=== PATIENT | male | born 2000 | race Hispanic/Latino ===

== ENCOUNTER 2023-01-26 10:46 | Emergency (ER) | payer OTHER ==
--- OUTSIDE RECORDS SUMMARY | 2023-01-26 10:55 | XMS REPORT | Continuity of Care Document ---
:2000 Author Organization [facility] t Address [address] [place] [address] [place] [id number] Care Team Providers Name Role Phone Nan Snyder Primary Care Physician Blaze Diaz Attending Clinician Unavailable Sukhdeep Cueva Attending Clinician Unavailable Nan Snyder Attending Clinician NAN LEONG Attending Clinician Unavailable Physician, Martha Primary or Family Admitting Clinician [facility] CENTER, URGENT CARE Admitting Clinician Unavailable Payers Payer Name Policy Type Policy Number Effective Date Expiration Date S [facility] [id number] 2016 00:00:00 Problems Condition Condition Condition Status Onset Resolution Last Treating Co mments Source Name Details Category Date Date Treatment Clinician Date No known No known Disease Unive rs active active ity of problems problems [facility] Allergies, Adverse Reactions, Alerts Allergy Allergy Status Severity Reaction(s) Onset Inactive Treating Comm ents Source Name Type Date Date Clinician Sulfa DA Active U UNKNOWN [facility] (Sulfona 8-04 Clear mide 00:00: [place] [facility] 00 Regiona ics) [facility] Sulfa Propensi Active Unknown - 2018-03 Patient Univ ers (Sulfona ty to See comments 2-19 unsure it y of mide adverse 00:00: [place] Antibiot reaction 00 Medica l ics) [facility] No Known DA Active U 2001- [facility] Contrast 5-15 Clear Allergie 00:00: [place] [facility] No Known DA Active U X 2001- [facility] Drug 5-15 Clear Allergie 00:00: [place] [facility] No Known DA Active U 2001- [facility] Food 5-15 Clear Allergie 00:00: [place] [facility] No Known DA Active U 2001- [facility] Other 5-15 Clear Allergie 00:00: [place] [facility] Social History Social Habit Start Date Stop Date Quantity Comments Source Exposure to 2021-10-20 2021-10-30 Not sure [facility] SARS-CoV-2 00:00:00 09:02:00 [facility] (event) [place] Alcohol intake 2021-10-30 2021-10-30 Current drinker Unive rsity of 00:00:00 00:00:00 of alcohol [facility] (finding) [place] Tobacco use and 2019-03-16 2019-03-16 Smokeless tobacco Un iversity of exposure 00:00:00 00:00:00 non-user [facility] Sex Assigned At [birth year] [facility] 00:00:00 00:00:00 [facility] Smoking Status Start Date Stop Date Source Never smoked tobacco [facility] [place] [place] Medications Ordered Filled Start Stop Current Ordering Indication Dosage Frequency Signature Comments Components Source Medication Medication Date Date Medication? Clinician (SIG) Name Name methylPREDN 2018- Yes Take by [facility] ISolone 4 2-20 mouth ity of mg tablets 00:00: SEE-INSTRU T exas 00 CTIONS. Medical follow Branch package directions Vital Signs Vital Name Observation Time Observation Value Comments Source Diastolic blood 2021-10-30 14:03:00 55 mm[Hg] Unive rsity of pressure [facility] Heart rate 2021-10-30 14:03:00 76 /min [facility] Body temperature 2021-10-30 14:03:00 36.72 Nancy [facility] Res[facility] rate 2021-10-30 14:03:00 16 /min [facility] Body height 2021-10-30 14:03:00 190.5 cm [facility] Body weight 2021-10-30 14:03:00 87.317 kg [facility] BMI 2021-10-30 14:03:00 24.06 kg/m2 [facility] Oxygen saturation in 2021-10-30 14:03:00 100 /min [facility] Pulse oximetry Branch Systolic blood 2021-10-30 14:03:00 127 mm[Hg] Univer venturay of pressure [facility] Procedures This patient has no known procedures. Encounters Start End Encounter Admission Attending Care Care Encounter Source Date/Time Date/Time Type Type Clinicians Facility Department ID 2021-10-30 2021-10-31 Emergency EM Emily, [facility]L MARC [id number] [facility] 23:19:00 01:27:00 Blaze 49 [facility] 2021-10-30 2021-10-30 Emergency EM Emily, HCACL [facility]L [id number] [facility] 23:19:00 23:19:00 Blaze [id number] [facility] 2021-10-30 2021-10-30 Emergency EM Anay, HCACL AERS [id number] [facility] 09:31:00 11:04:00 Sukhdeep 52 [facility] 2021-10-30 2021-10-30 Office JAROD Leong [id number] [facility] 09:00:00 09:30:00 Visit Nan PEDIATRIC [id number] it[id number] [id number] [facility] PRIMARY [facility] CARE [facility]INIC 2021-10-30 2021-10-30 Outpatient R SYLVIA WVCATHY [facility] [id number] [facility] 09:00:00 09:00:00 NAN sutton [facility] Results Test Description Test Time Test Comments Results Result Comments Source CBC W/AUTO DIFF 2021-10-30 11:56:00 Test Item Value Reference Range Interpretation Comme nts WHITE BLOOD CELL (test code = WBC) 4.0 K/uL 3.5-11.0 N RED BLOOD CELL (test code = RBC) 4.93 M/uL 4.00-5.60 N HEMOGLOBIN (test code = HGB) 15.9 GM/DL 12.5-16.9 N HEMATOCRIT (test code = HCT) 44.4 % 40.0-54.0 N MEAN CELL VOLUME (test code = MCV) 90.1 fL 81.0-99.0 N MEAN CELL HGB (test code = MCH) 32.3 pg 27.0-31.0 H MEAN CELL HGB CONCETRATION (test code = MCHC) 35.8 GM/DL 33.0-37. 0 N RED CELL DISTRIBUTION WIDTH CV (test code = RDW) 13.3 % 11.5- 14.5 N PLATELET COUNT (test code = PLT) 206 K/mm3 150-400 N MEAN PLATELET VOLUME (test code = MPV) 10.4 FL 8.8-13.1 N NEUTROPHIL % (test code = NT%) 60.3 % 40.0-76.0 N LYMPHOCYTE % (test code = LY%) 33.7 % 15.0-40.0 N MIXED % (test code = MX%) 6.0 % 3.0-15.0 N NEUTROPHIL # (test code = NT#) 2.5 K/uL 1.8-7.6 N LYMPHOCYTE # (test code = LY#) 1.3 K/uL 1.0-3.8 N MIXED # (test code = MX#) 0.2 k/mm3 0.1-0.8 N BASIC METABOLIC [id number] 09:58:00 Test Item Value Reference Range Interpretation Comments SODIUM (test code = NA/ABG) 143 MEQ/L 134-147 N POTASSIUM (test code = K/ABG) 4.0 MEQ/L 3.4-5.0 N CHLORIDE (test code = CL/ABG) 106 MEQ/L 100-108 N CREATININE ABG (test code = 1.0 mg/dL 0.8-1.3 N CREAABG) POC IONIZED CALCIUM (test code = 1.19 MMOL/L 1.12-1.32 N POCCA) POC GLUCOSE (test code = POCGLU) 72 MG/DL 70-110 N - XR CHEST 2 [id number] 00:00:00 [facility] 2000 Sex: M FAX:Sukhdeep Cueva MD [place]: [place] St: REG Name: ANDERS SARMIENTO FSED : 2000 Age/S: 21/M [address] [facility] Unit #: [id number] [place]: [place] [address] Phys: Sukhdeep Cueva MD Acct: [id number] Dis Date: Status:REG ER PHONE #: Exam Date: 10/30/2021 1011 FAX #: Reason: SOB EXAMS: CPT CODE: [id number] XR CHEST 2V [id number] PROCEDURE INFORMATION: Exam: XR Chest Exam date and time: 10/30/2021 9:40 AM Age: 21 years oldClinical indication: Shortness of breath; Additional info: SOB TECHNIQUE: Imaging protocol: Radiologic exam of the chest. Views: 2 views. COMPARISON: No relevant prior studies available. FINDINGS: Lungs: No focal consolidations. Pleural spaces: Unremarkable. No pleural effusion. No pneumothorax. Heart/Mediastinum: Unremarkable. Bones/joints: Unremarkable. IMPRESSION: No acute cardiopulmonary abnormalities at 1026 Reported and signed by: Titi Kebede M.D. CC: Sukhdeep Cueva MD Technologist: Mason Encarnacion RT(R)(CT) Trnscrd Date/Time/By: 10/30/2021 (1026) : By: [email or web address] Orig Print D/T: S: 10/30/2021 (1997) PAGE 1 Signed Report
[2023-01-26] MEDS ORDERED: ONDANSETRON 4 MG/2 ML VIAL ONE (11:22)
[2023-01-26] MEDS ORDERED: MAGNES/ALUMIN/SIMET 30ML UCUP ONE (11:22)
[2023-01-26] MEDS ORDERED: FAMOTIDINE 20 MG/2 ML VIAL IV ONE (11:22)
[2023-01-26] MEDS ORDERED: NA CHLORIDE 0.9% 1,000 ML ONE (11:22)
[2023-01-26 11:23] LABS: Absolute Lymphocytes (CBC) 1.7 K/uL (0.7-4.9); Hematocrit 49.4 % (39.6-49.0); Lymphocytes % 23.1 % (15.3-44.8); MCV 90.5 fL (80-100); MPV 8.2 fL (7.6-11.3); Platelets 180 thou/uL (152-406); RBC Red Blood Cell Count 5.46 M/uL (4.33-5.43)
[2023-01-26 11:29] LABS: Albumin 4.3 g/dL (3.4-5.0); Bilirubin Total 0.6 mg/dL (0.2-1.0); Potassium 4.1 mEq/L (3.5-5.1); Protein, Total 8.5 g/dL (6.4-8.2)
--- NOTE | 2023-01-26 11:41 | RAD REPORT ---
EXAM DESCRIPTION: CTAbdomen Pelvis W Contrast - 01/26/2023 11:28 am CLINICAL HISTORY: ABD PAIN COMPARISON: No comparisons TECHNIQUE: CT of the abdomen and pelvis was performed. All CT scans are performed using dose optimization technique as appropriate and may include automated exposure control or mA/KV adjustment according to patient size. FINDINGS: Lower chest: No acute abnormality. Liver: No acute abnormality or suspicious lesions. Biliary: No biliary ductal dilatation. Stomach: No significant focal abnormality. Duodenum: No significant focal abnormality. Pancreas: No significant abnormality. Spleen: No significant abnormality. Adrenal: No suspicious lesions. Kidney/ureter: No hydronephrosis. No renal calculi. Retroperitoneum: No retroperitoneal adenopathy. Vascular: No aneurysm. Bowel: Nonspecific fluid within the small bowel and colon. Normal appendix. Peritoneum: No ascites or free air. Bladder: Grossly unremarkable. Reproductive: No adnexal masses. Bones: No acute fracture. Other: n/a IMPRESSION: Fluid-filled small bowel and colon could represent a gastroenteritis. No bowel obstructi on. Normal appendix. .
--- NOTE | 2023-01-26 12:04 | ER ---
Nurse's Notes [facility] Name: William Sarmiento Age: 22 yrs Sex: Male : 2000 Arrival Date: 01/26/2023 Time: 10:46 Bed 13 Private MD: Diagnosis: Infectious gastroenteritis and colitis, unspecified;Gastritis, unspecified Presentation: 01/26 10:58 Chief complaint: Upper abdominal pain and nausea x 1 week. Pain is worse after eating. hb Denies fever/V/D. Coronavirus screen: At this time, the client does not indicate any symptoms associated with coronavirus-19. Ebola Screen: No symptoms or risks identified at this time. Initial Sepsis Screen: Does the patient meet any 2 criteria? No. Patient's initial sepsis screen is negative. Does the patient have a suspected source of infection? No. Patient's initial sepsis screen is negative. Risk Assessment: Do you want to hurt yourself or someone else? Patient reports no desire to harm self or others. Onset of symptoms was January 19, 2023. 10:58 Method Of Arrival: Ambulatory 10:58 Acuity: HARDIK 3 hb Historical: - Allergies: 11:00 No Known Allergies; hb - Home Meds: 11:00 None [Active]; hb - PMHx: 11:00 None; hb - PSHx: 11:00 None; hb - Immunization history:: Adult Immunizations unknown. - Family history:: not pertinent. - Social history:: Smoking status: unknown. - Hospitalizations: : No recent hospitalization is reported. Screenin:49 [facility] ED Fall Risk Assessment (Adult) Score/Fall Risk Level 0 - 2 = Low Risk nj1 Oriented to surroundings, Maintained a safe environment, Hourly rounding (assess needs \T\ fall precautionary measures) done. Abuse screen: Denies threats or abuse. Denies injuries from another. Nutritional screening: No deficits noted. Tuberculosis screening: No symptoms or risk factors identified. Assessment: 11:48 General: Appears in no apparent distress. comfortable, Behavior is calm, cooperative, nj1 appropriate for age. Pain: Complains of pain in epigastric area Pain currently is 2 out of 10 on a pain scale. Neuro: Level of Consciousness is awake, alert, obeys commands, Oriented to person, place, time, situation. Cardiovascular: Patient's skin is warm and dry. Respiratory: Airway is patent Respiratory effort is even, unlabored. GI: Reports upper abdominal pain, diarrhea, epigastric pain, nausea, Patient currently denies vomiting. 12:20 Reassessment: Patient appears in no apparent distress at this time. Patient and/or nj1 family updated on plan of care and expected duration. Pain level reassessed. Patient is alert, oriented x 3, equal unlabored respirations, skin warm/dry/pink. Patient states feeling better. Vital Signs: 10:58 BP 129 / 91; Pulse 55; Resp 16; Temp 97.6(O); Pulse Ox 100% on R/A; Weight 83.91 kg; hb Height 6 ft. 3 in. ; Pain 2/10; 11:50 BP 117 / 86; Pulse 54; Resp 19; Pulse Ox 100% ; Pain 2/10; nj1 10:58 Body Mass Index 23.12 (83.91 kg, 190.5 cm) hb 10:58 Pain Scale: Adult hb 11:50 Pain Scale: Adult nv1 ED Course: 10:50 Patient arrived in ED. mg5 10:51 Filipe Vaughn MD is Attending Physician. rn 11:00 Triage completed. hb 11:00 Inserted saline lock: 20 gauge in right antecubital area, using aseptic technique. mb9 11:12 EKG done, by ED staff, reviewed by Filipe Vaughn MD. em1 11:14 Arm band placed on. mb9 11:15 CBC with Diff Sent. mb9 11:15 CMP Sent. mb9 11:20 Ayesha Marques, RN is Primary Nurse. nj1 11:30 CT Abd/Pelvis - IV Contrast Only In Process Unspecified. EDMS 11:49 Provided Education on: call light, fall precautions. nj1 11:50 Patient has correct armband on for positive identification. Bed in low position. Call nv1 light in reach. Adult w/ patient. 12:20 No provider procedures requiring assistance completed. IV discontinued, intact, nj1 bleeding controlled. Administered Medications: 11:10 Drug: NS 0.9% IV 1000 ml IV at 1 bolus Per protocol; 1000 mL bolus Route: IV; Rate: 1 mb9 bolus; Site: right antecubital; 12:20 Follow up: Response: No adverse reaction; IV Status: Completed infusion; IV Intake: nj1 1000ml 11:12 Drug: Famotidine IVP 20 mg IVP once; dilute with 10 mL 0.9% NaCl; give over 2 minutes mb9 Route: IVP; Site: right antecubital; 12:20 Follow up: Response: No adverse reaction nj1 11:14 Drug: GI Cocktail without - (Maalox PO 30 ml, Lidocaine Mucous Membrane 2 % 15 mb9 ml) PO once Route: PO; 12:20 Follow up: Response: No adverse reaction nj1 11:15 Drug: Ondansetron IVP 4 mg IVP once; over 2 minutes Route: IVP; Site: right antecubital;mb9 12:20 Follow up: Response: No adverse reaction nj1 Medication: 12:46 VIS not applicable for this client. nj1 Intake: 12:20 IV: 1000ml; Total: 1000ml. nj1 Outcome: 12:04 Discharge ordered by . rn 12:30 Patient left the ED. nj1 12:46 Discharged to home ambulatory, with significant other, nj1 12:46 Condition: stable 12:46 Discharge instructions given to patient, Instructed on discharge instructions, follow up and referral plans. medication usage, Demonstrated understanding of instructions, follow-up care, medications, Prescriptions given X 4, Signatures: Dispatcher [employer] EDMS Filipe Vaughn MD MD rn Martinez, Eric em1 Mela Stephens RN RN hb Breneman, Mary Beth, RN RN mb9 Ayesha Marques RN RN nj1 Gardner, [place] mg5 Corrections: (The following items were deleted from the chart) 12:47 12:46 Patient left the ED. nj1 nj
--- NOTE | 2023-01-26 12:04 | EDPHYS ---
Physician Documentation [facility] Name: William Sarmiento Age: 22 yrs Sex: Male : 2000 Arrival Date: 01/26/2023 Time: 10:46 Bed 13 Private MD: ED Physician Filipe Vaughn HPI: 01/26 10:58 This 22 yrs old Male presents to ER via Unassigned with complaints of rn Abdominal Pain. 10:58 The patient presents with abdominal pain in the epigastric area. Onset: The rn symptoms/episode began/occurred 1 week(s) ago. The symptoms radiate to back. Associated signs and symptoms: Pertinent positives: nausea, Pertinent negatives: blood in stools, chest pain, diarrhea, fever, shortness of breath, testicular pain, vomiting blood. The symptoms are described as achy, crampy. Modifying factors: The symptoms are alleviated by nothing, the symptoms are aggravated by food. Severity of pain: At its worst the pain was moderate in the emergency department the pain is unchanged. The patient has not experienced similar symptoms in the past. The patient has not recently seen a physician. Patient reports upper abdominal pain over the last week, got worse last night with nausea and epigastric pain that would not improve. Reports started getting really bad last night after eating pizza. Did not sleep all night. Radiates to the back. No history of gallbladder stones or pancreatitis. No dark stool or bloody stool.. Historical: - Allergies: 11:00 No Known Allergies; hb - Home Meds: 11:00 None [Active]; hb - PMHx: 11:00 None; hb - PSHx: 11:00 None; hb - Immunization history:: Adult Immunizations unknown. - Family history:: not pertinent. - Social history:: Smoking status: unknown. - Hospitalizations: : No recent hospitalization is reported. ROS: 10:58 Constitutional: Negative for fever, chills, and weight loss, Cardiovascular: Negative rn for chest pain, palpitations, and edema, Respiratory: Negative for shortness of breath, cough, wheezing, and pleuritic chest pain, Abdomen/GI: Positive for abdominal pain and nausea Back: Positive for mid back pain MS/Extremity: Negative for injury and deformity, Skin: Negative for injury, rash, and discoloration, Neuro: Negative for headache, weakness, numbness, tingling, and seizure, Exam: 10:58 Constitutional: This is a well developed, well nourished patient who is awake, alert, rn and in no acute distress. Ambulatory to room without assistance or distress Head/Face: Normocephalic, atraumatic. Cardiovascular: Bradycardic, regular. No pulse deficits. Respiratory: No increased work of breathing, no retractions or nasal flaring. Abdomen/GI: Soft, epigastric tenderness, negative Fuentes, no peritoneal signs Skin: Warm, dry MS/ Extremity: Pulses equal, no cyanosis. Neuro: Awake and alert, GCS 15 Vital Signs: 10:58 BP 129 / 91; Pulse 55; Resp 16; Temp 97.6(O); Pulse Ox 100% on R/A; Weight 83.91 kg; hb Height 6 ft. 3 in. ; Pain 2/10; 11:50 BP 117 / 86; Pulse 54; Resp 19; Pulse Ox 100% ; Pain 2/10; nj1 10:58 Body Mass Index 23.12 (83.91 kg, 190.5 cm) hb 10:58 Pain Scale: Adult hb 11:50 Pain Scale: Adult nj1 MDM: 10:51 Patient medically screened. rn 12:01 Differential diagnosis: appendicitis, bowel obstruction, cholecystitis, Cholelithiasis, rn diverticulitis, gastritis, gastroesophageal reflux disease, Peptic Ulcer Disease. Data reviewed: vital signs, nurses notes, lab test result(s), radiologic studies, CT scan, and as a result, I will discharge patient. I considered the following discharge prescriptions or medication management in the emergency department Medications were administered in the Emergency Department. See MAR. Counseling: I had a detailed discussion with the patient and/or guardian regarding the historical points, exam findings, and any diagnostic results supporting the discharge/admit diagnosis, lab results, radiology results, the need for outpatient follow up, to return to the emergency department if symptoms worsen or persist or if there are any questions or concerns that arise at home. Response to treatment: the patient's symptoms have markedly improved after treatment, and as a result, I will discharge patient. Special discussion: Based on the patient's Hx, exam, and Dx evaluation, there is no indication for emergent surgery or inpatient Tx. It is understood by the patient/guardian that if the Sx's persist or worsen they need to return immediately for re-evaluation. I discussed with the patient/guardian in detail that at this point there is no indication for admission to the hospital. It is understood, however, that if the symptoms persist or worsen the patient needs to return immediately for re-evaluation. ED course: Patient improved after acid medication here. CT shows possible enteritis or colitis. Will DC home with antacids and antibiotics. Patient feels much better. I have personally reviewed all of the results, including but not limited to blood tests and imaging deemed necessary to safely discharge this patient at this time. All results given to and printed out for patient. I personally went over all the results with the patient and answered all questions. Patient will follow-up with PCP and or specialist as discussed. Return precautions given and understood.. 01/26 10:57 Order name: CBC with Diff; Complete Time: 11:52 rn 01/26 10:57 Order name: CMP; Complete Time: 11:52 rn 01/26 10:57 Order name: Lipase; Complete Time: 11:52 rn 01/26 10:57 Order name: CT Abd/Pelvis - IV Contrast Only; Complete Time: 11:52 rn 01/26 11:01 Order name: EKG; Complete Time: 11:02 rn 01/26 10:58 Order name: IV Saline Lock; Complete Time: 11:15 rn 01/26 10:58 Order name: Labs collected and sent; Complete Time: 11:15 rn 01/26 11:01 Order name: EKG - Nurse/Tech; Complete Time: 11:12 rn Administered Medications: 11:10 Drug: NS 0.9% IV 1000 ml IV at 1 bolus Per protocol; 1000 mL bolus Route: IV; Rate: 1 mb9 bolus; Site: right antecubital; 12:20 Follow up: Response: No adverse reaction; IV Status: Completed infusion; IV Intake: nj1 1000ml 11:12 Drug: Famotidine IVP 20 mg IVP once; dilute with 10 mL 0.9% NaCl; give over 2 minutes mb9 Route: IVP; Site: right antecubital; 12:20 Follow up: Response: No adverse reaction nj1 11:14 Drug: GI Cocktail without - (Maalox PO 30 ml, Lidocaine Mucous Membrane 2 % 15 mb9 ml) PO once Route: PO; 12:20 Follow up: Response: No adverse reaction nj1 11:15 Drug: Ondansetron IVP 4 mg IVP once; over 2 minutes Route: IVP; Site: right antecubital;mb9 12:20 Follow up: Response: No adverse reaction nj1 Disposition Summary: 01/26/23 12:04 Discharge Ordered Notes: Location: Home rn Problem: new rn Symptoms: have improved rn Condition: Stable rn Diagnosis - Infectious gastroenteritis and colitis, unspecified rn - Gastritis, unspecified rn Followup: rn - With: Private Physician - When: As needed - Reason: Recheck today's complaints, Re-evaluation by your physician Discharge Instructions: - Discharge Summary Sheet rn - Gastroesophageal Reflux Disease, Adult rn - Nausea and Vomiting, Adult rn - Viral Gastroenteritis, Adult rn Forms: - Medication Reconciliation Form rn - Thank You Letter rn - Antibiotic director e learning - Prescription Opioid Use rn - Patient Portal Instructions rn - Leadership Thank You Letter rn Prescriptions: - ondansetron 4 mg Oral Tablet,disintegrating - take 1 tablet ORAL route every 8 hours As needed; 10 tablet; Refills: 0, rn Product Selection Permitted - Flagyl 500 mg Oral tablet - take 1 tablet ORAL route every 12 hours for 10 days; 20 tablet; Refills: 0, rn Product Selection Permitted - Protonix 40 mg Oral Tablet - take 1 tablet ORAL route once daily; 30 tablet; Refills: 0, Product Selection rn Permitted - Cipro 500 mg Oral tablet - take 1 tablet ORAL route every 12 hours for 10 days; 20 tablet; Refills: 0, rn Product Selection Permitted Signatures: Dispatcher [employer] Filipe Duval MD MD rn Baxter, Heather RN Neha Garza RN RN mb9 Ayesha Marques RN RN nj1
[2023-01-26 13:04] VITALS: TEMP 97.6; O2SAT 100
[2023-01-26 13:10] VITALS: BP 117/86
--- NOTE | 2023-01-27 18:06 | EKG ---
Test Date: 2023-01-26 Test Time: 11:09:01 Senior Game Designer: CHIQUI MEASUREMENT RESULTS: Intervals: Rate: 58 OH: 172 QRSD: 98 QT: 382 QTc: 374 [place]: P: 81 OH: 172 QRS: 64 T: 77 INTERPRETIVE STATEMENTS: Sinus bradycardia Septal infarct, age undetermined Abnormal ECG No previous ECG available for comparison Electronically Signed On 01-27-23 18:03:53 CDT by Masoud Bower
== END 2023-01-26 12:46 | disposition home or self-care (01) ==
LOC: ER 10:46
DX: A09 Infectious gastroenteritis and colitis, unspecified (principal); K29.70 Gastritis, unspecified, without bleeding
CPT/HCPCS: 96361; 93005; 85025; 36415; 83690; 80053; 74177; 96375; 96374; 99284; Q9967; J2405; J7030